=== PATIENT | male | born 1980 | race African-American/Black ===

== ENCOUNTER 2019-12-18 11:54 | Emergency (ER) | payer OTHER ==
[2019-12-18 12:30] VITALS: TEMP 97.8; BMI 73.5
[2019-12-18 13:26] VITALS: BP 159/105; PULSE 63
--- NOTE | 2019-12-18 13:38 | PDOC ---
History of Present Illness - General Chief Complaint: Blood Pressure Problem Stated Complaint: HIGH BP Time Seen by Provider: 12/18/19 12:41 History Source: Patient Exam Limitations: No Limitations Past History - Travel Traveled outside of the country in the last 30 days: No Close contact w/someone who was outside of country & ill: No - Past Medical History Allergies/Adverse Reactions: Allergies Allergy/AdvReac Type Severity Reaction Status Date / Time No Known Allergies Allergy Verified 12/18/19 12:22 - Psycho Social/Smoking Cessation Hx Smoking History: Never smoked Hx Alcohol Use: No Drug/Substance Use Hx: No Review of Systems - Review of Systems Able to Perform ROS?: Yes Comments:: 12/18/19 13:28 CONSTITUTIONAL: Absent: fever, chills, diaphoresis, generalized weakness, malaise, loss of appetite HEENT: Absent: rhinorrhea, nasal congestion, throat pain, throat swelling, difficulty swallowing, mouth swelling, ear pain, eye pain, visual Changes CARDIOVASCULAR: Absent: chest pain, loss of consciousness, palpitations, irregular heart rate, peripheral edema RESPIRATORY: Absent: cough, shortness of breath, dyspnea with exertion, orthopnea, wheezing, stridor, hemoptysis GASTROINTESTINAL: Absent: abdominal pain, abdominal distension, nausea, vomiting, diarrhea, constipation, melena, hematochezia GENITOURINARY: Absent: dysuria, frequency, urgency, hesitancy, hematuria, flank pain, genital pain MUSCULOSKELETAL: Absent: myalgia, arthralgia, joint swelling SKIN: Absent: rash, itching, pallor NEUROLOGIC: Absent: headache, focal weakness or paresthesias, dizziness, unsteady gait, seizure, mental status changes, bladder or bowel incontinence PSYCHIATRIC: Absent: anxiety, depression, suicidal or homicidal ideation, hallucinations. Is the patient limited Thai proficient: No *Physical Exam - Vital Signs Last Vital Signs Temp Pulse Resp BP Pulse Ox 97.8 F 63 16 159/105 H 99 12/18/19 12:22 12/18/19 13:25 12/18/19 12:22 12/18/19 13:25 12/18/19 13:25 - Physical Exam 12/18/19 13:38 GENERAL: Well developed, well nourished. Awake and alert. No acute distress. HEENT: Normocephalic, atraumatic. PERRLA, EOMI. No conjunctival pallor. Sclera are non- icteric. Moist mucous membranes. Oropharynx is clear. NECK: Supple. Full ROM. No JVD. Carotid pulses 2+ and symmetric, without bruits. No thyromegaly. No lymphadenopathy. CARDIOVASCULAR: Regular rate and rhythm. No murmurs, rubs, or gallops. Distal pulses are 2+ and symmetric. PULMONARY: No evidence of respiratory distress. Lungs clear to auscultation bilaterally. No wheezing, rales or rhonchi. SKIN: Warm and dry. Normal capillary refill. No rashes. No jaundice. NEUROLOGICAL: Alert, awake, appropriate. Cranial nerves 2-12 intact. No deficits to light touch and temperature in face, upper extremities and lower extremities. No motor deficits in the in face, upper extremities and lower extremities. Normoreflexic in the upper and lower extremities. Normal speech. Toes are down- going bilaterally. Gait is normal without ataxia. PSYCHIATRIC: Cooperative. Good eye contact. Appropriate mood and affect. Medical Decision Making - Medical Decision Making 12/18/19 13:38 The patient is a 39-year-old male with no past medical history who presents to the ER for elevated blood pressure. He states he was at his doctor's office and had a reading of 160/100 so he was told to come to the ER for evaluation. He is currently asymptomatic. He denies headache, dizziness, neck pain, nausea , chest pain and difficulty breathing. He states he had a normal blood pressure at his doctor's office 2 weeks ago when he was evaluated for flulike symptoms. A/P: Elevated blood pressure reading On exam lungs are clear to auscultation bilateral with no wheezes rales or rhonchi. Heart sounds are normal, S1-S2 present no murmurs rubs or gallops. Regular rate and rhythm. No bruits noted. Pt is neurologically intact with no focal findings. First time with the patient presenting with an elevated blood pressure. Repeat blood pressure in the ER is down to 150/100. Hold blood pressure medication as patient has no history of hypertension and this is his first elevated blood pressure reading. We will have the patient start a blood pressure diary and have him take his blood pressure twice a day and follow-up with his primary care doctor. Strict return precautions given should patient develop headache, dizziness, chest pain. Patient counseled for diet and exercise. I discussed the physical exam findings, ancillary test results and final diagnoses with the patient. I answered all of the patient's questions. The patient was satisfied with the care received and felt comfortable with the discharge plan and treatment plan. The Patient agrees to follow up with the primary care physician/specialist within 24-72 hours. Return precautions were given. Discharge - Discharge Information Problems reviewed: Yes Clinical Impression/Diagnosis: Elevated blood pressure reading Condition: Stable Disposition: HOME - Admission No - Follow up/Referral Referrals: Stephany Love NP [Primary Care Provider] - Fernando Herman MD [Staff Physician] - - Patient Discharge Instructions Patient Printed Discharge Instructions: DI for High Blood Pressure, How to Monitor Your Blood Pressure at Home Additional Instructions: Your blood pressure was 150/100 in the office today. Please keep a diary of your blood pressures. Take it twice a day. Please follow-up with your primary care doctor, you were also given a referral for primary care doctor, to go over these readings. Eat a diet low in sodium, with lots of fruit and vegetables. Avoid fast food Get 30 minutes of exercise a day if possible Return to the ER for headache, chest pain, difficulty breathing, nausea, vomiting, dizziness or if you have any changes in your symptoms. - Post Discharge Activity Work/Back to School Note: Back to Work
== END 2019-12-18 13:45 | disposition home or self-care (01) ==
LOC: JERFT 11:54
DX: I10 Essential (primary) hypertension (principal)
CPT/HCPCS: 99281-25

== ENCOUNTER 2020-01-04 05:48 | Emergency (ER) | payer OTHER ==
[2020-01-04 06:31] VITALS: BP 159/104; PULSE 95; TEMP 98.2; BMI 31.9
--- NOTE | 2020-01-04 07:31 | PDOC ---
History of Present Illness - General History Source: Patient Exam Limitations: No Limitations <Bertha Deluca - Last Filed: 01/04/20 09:35> <Aneta Godinez - Last Filed: 01/04/20 10:45> - General Chief Complaint: Psychiatric Stated Complaint: ANXIETY Time Seen by Provider: 01/04/20 06:57 Past History - Travel Traveled outside of the country in the last 30 days: No Close contact w/someone who was outside of country & ill: No - Past Medical History COPD: No - Psycho Social/Smoking Cessation Hx Smoking History: Unknown if ever smoked Hx Alcohol Use: No Drug/Substance Use Hx: No <Bertha Deluca - Last Filed: 01/04/20 09:35> <Aneta Godinez - Last Filed: 01/04/20 10:45> - Past Medical History Allergies/Adverse Reactions: Allergies Allergy/AdvReac Type Severity Reaction Status Date / Time No Known Allergies Allergy Verified 01/04/20 06:25 Home Medications: Ambulatory Orders Hydroxyzine HCl 25 mg PO TID #21 tablet 01/04/20 Review of Systems - Review of Systems Able to Perform ROS?: Yes Comments:: 01/04/20 07:56 CONSTITUTIONAL: Absent: fever, chills, diaphoresis, generalized weakness, malaise, loss of appetite HEENT: Absent: rhinorrhea, nasal congestion, throat pain, throat swelling, difficulty swallowing, mouth swelling, ear pain, eye pain, visual Changes CARDIOVASCULAR: Absent: chest pain, loss of consciousness, palpitations, irregular heart rate, peripheral edema RESPIRATORY: Absent: cough, shortness of breath, dyspnea with exertion, orthopnea, wheezing, stridor, hemoptysis GASTROINTESTINAL: Absent: abdominal pain, abdominal distension, nausea, vomiting, diarrhea, constipation, melena, hematochezia GENITOURINARY: Absent: dysuria, frequency, urgency, hesitancy, hematuria, flank pain, genital pain MUSCULOSKELETAL: Absent: myalgia, arthralgia, joint swelling SKIN: Absent: rash, itching, pallor HEMATOLOGIC/IMMUNOLOGIC: Absent: easy bleeding, easy bruising, lymphadenopathy, frequent infections ENDOCRINE: Absent: unexplained weight gain, unexplained weight loss, heat intolerance, cold intolerance NEUROLOGIC: Absent: headache, focal weakness or paresthesias, dizziness, unsteady gait, seizure, mental status changes, bladder or bowel incontinence PSYCHIATRIC: Present: anxiety Absent: depression, suicidal or homicidal ideation, hallucinations. Is the patient limited [place] proficient: No <Bertha Deluca - Last Filed: 01/04/20 09:35> *Physical Exam - Vital Signs Last Vital Signs Temp Pulse Resp BP Pulse Ox 98.2 F 95 H 20 159/104 H 97 01/04/20 06:21 01/04/20 06:21 01/04/20 06:21 01/04/20 06:21 01/04/20 06:21 - Physical Exam 01/04/20 07:57 GENERAL: Well developed, well nourished. Awake and alert. No acute distress. HEENT: Normocephalic, atraumatic. PERRLA, EOMI. No conjunctival pallor. Sclera are non- icteric. Moist mucous membranes. Oropharynx is clear. NECK: Supple. Full ROM. No lymphadenopathy. CARDIOVASCULAR: Regular rate and rhythm. No murmurs, rubs, or gallops. Distal pulses are 2+ and symmetric. PULMONARY: No evidence of respiratory distress. Lungs clear to auscultation bilaterally. No wheezing, rales or rhonchi. MUSCULOSKELETAL Normal range of motion at all joints. No bony deformities or tenderness. No CVA tenderness. EXTREMITIES: No cyanosis. No clubbing. No edema. No calf tenderness. SKIN: Warm and dry. Normal capillary refill. No rashes. No jaundice. NEUROLOGICAL: Alert, awake, appropriate. Cranial nerves 2-12 intact. No deficits to light touch and temperature in face, upper extremities and lower extremities. No motor deficits in the in face, upper extremities and lower extremities. Normoreflexic in the upper and lower extremities. Normal speech. Toes are down- going bilaterally. Gait is normal without ataxia. PSYCHIATRIC: Cooperative. Good eye contact. Appropriate mood and affect. <Darvin Delucaca - Last Filed: 01/04/20 09:35> - Vital Signs Last Vital Signs Temp Pulse Resp BP Pulse Ox 98.2 F 95 H 20 159/104 H 97 01/04/20 06:21 01/04/20 06:21 01/04/20 06:21 01/04/20 06:21 01/04/20 06:21 <Aneta Godinez - Last Filed: 01/04/20 10:45> ED Treatment Course - LABORATORY CBC & Chemistry Diagram: 01/04/20 08:35 01/04/20 08:35 <Bertha Deluca - Last Filed: 01/04/20 09:35> - LABORATORY CBC & Chemistry Diagram: 01/04/20 08:35 01/04/20 08:35 - ADDITIONAL ORDERS Additional order review: Laboratory Results 01/04/20 08:35 Sodium 138 Potassium 4.7 Chloride 106 Carbon Dioxide 25 Anion Gap 8 BUN 11.9 Creatinine 1.3 Est GFR (CKD-EPI)AfAm 79.10 Est GFR (CKD-EPI)NonAf 68.25 Random Glucose 100 Calcium 9.5 Total Bilirubin 0.5 AST 24 ALT 45 Alkaline Phosphatase 98 Total Protein 7.5 Albumin 4.1 01/04/20 08:35 RBC 4.82 MCV 87.7 MCHC 33.5 RDW 14.7 MPV 7.0 L Neutrophils % 58.3 Lymphocytes % 26.0 Monocytes % 13.8 H Eosinophils % 1.0 Basophils % 0.9 <Aneta Godinez - Last Filed: 01/04/20 10:45> Medical Decision Making - Medical Decision Making 01/04/20 07:57 The patient is a 39 y/o M with no PMH, presents to the ER with a "jittery feeling" which started last night. He states that he felt anxious last night and had trouble sleeping. He notes he had palpitations when the anxiety was starting but they have since resolved. He states he is feeling improved since last night, but was concerned so he presented to the ER for evaluation. A/P: Anxiety On exam lungs are clear to auscultation bilaterally without wheezes rales or rhonchi. Heart sounds present, S1-S2. Normal rate and rhythm. EK bpm. NSR. Normal intervals and axis. No acute ST-T wave changes. Jitteriness likely due to anxiety. Will treat with Atarax. CBC with no leukocytosis, CMP electrolytes WNL. Of note patient's blood pressure is 159/100. He was seen by myself 2 weeks ago and had elevated blood pressure readings at that time. Will likely need treatment for his pressure as it has been sustained at this level He has not followed up with primary care doctor yet. Explained the importance of needing to f/u with his PCP. Referral given again for primary care I discussed the physical exam findings, ancillary test results and final diagnoses with the patient. I answered all of the patient's questions. The patient was satisfied with the care received and felt comfortable with the discharge plan and treatment plan. The Patient agrees to follow up with the primary care physician/specialist within 24-72 hours. Return precautions were given. <Bertha Deluca - Last Filed: 01/04/20 09:35> - Medical Decision Making I reviewed the case with the mid-level practitioner and agree with the mid- level practitioner's assessment, diagnosis and disposition. <Aneta Godinez - Last Filed: 01/04/20 10:45> Discharge - Discharge Information Problems reviewed: Yes - Admission No <Bertha Deluca - Last Filed: 01/04/20 09:35> <Aneta Godinez - Last Filed: 01/04/20 10:45> - Discharge Information Clinical Impression/Diagnosis: Anxiety Condition: Stable Disposition: HOME - Additional Discharge Information Prescriptions: Hydroxyzine HCl 25 mg PO TID #21 tablet - Follow up/Referral Referrals: Amanda Love FNP [Primary Care Provider] - Fernando Herman MD [Staff Physician] - - Patient Discharge Instructions Patient Printed Discharge Instructions: DI for Anxiety -- Adult Additional Instructions: You were evaluated for your anxiety today. Please take the Atarax as directed to help with your symptoms. This is [id number] medication. Your blood pressure reading was also elevated again today at 159/100. Please follow-up with your primary care doctor. This is now your second elevated blood pressure reading within the emergency department. A referral for primary care has been given. Return to the ER for any new or worsening symptoms. - Post Discharge Activity Work/Back to School Note: Back to Work
[2020-01-04 08:54] LABS: BASO % 0.9 % (0-2.0); HEMATOCRIT 42.3 % (35.4-49); HEMOGLOBIN 14.2 GM/dL (11.7-16.9); MCH 29.4 pg (25.7-33.7); MCHC 33.5 g/dl (32.0-35.9); MEAN CELL VOLUME 87.7 fl (80-96); MONO % 13.8 % (3.8-10.2); NEUT % 58.3 % (42.8-82.8); PLATELET COUNT 267 K/MM3 (134-434); RBC 4.82 M/mm3 (4.00-5.60); RDW 14.7 % (11.9-15.9); WHITE BLOOD COUNT 3.1 K/mm3 (4.0-10.0)
[2020-01-04 09:27] LABS: ALBUMIN 4.1 g/dl (3.4-5.0); BILIRUBIN,TOTAL 0.5 mg/dL (0.2-1); BLOOD UREA NITROGEN 11.9 mg/dL (7-18); CALCIUM 9.5 mg/dL (8.5-10.1); CREATININE 1.3 mg/dL (0.55-1.3); POTASSIUM 4.7 mmol/L (3.5-5.1); TOT PROT 7.5 g/dl (6.4-8.2)
--- NOTE | 2020-01-04 14:58 | EKG ---
Test Reason : Blood Pressure : / mmHG Vent. Rate : 068 BPM Atrial Rate : 068 BPM P-R Int : 154 ms QRS Dur : 114 ms QT Int : 408 ms P-R-T Axes : 061 051 032 degrees QTc Int : 433 ms NORMAL SINUS RHYTHM NORMAL ECG NO PREVIOUS ECGS AVAILABLE Confirmed by Nayana Polanco ([id number]) on 01/04/2020 2:57:57 PM Referred By: Confirmed By:Nayana Polanco
== END 2020-01-04 10:30 | disposition home or self-care (01) ==
LOC: JER 05:48
DX: F41.9 Anxiety disorder, unspecified (principal)
CPT/HCPCS: 36415; 80053; 85025; 93005; 93010; 99284-25